=== PATIENT | female | born 1990 | race Hispanic/Latino ===

== ENCOUNTER 2020-03-26 15:00 | Emergency (ER) | payer OTHER ==
[2020-03-26] MEDS ORDERED: Sodium Chloride 0.9% 1,000 ML IV ONE ×2 (17:02→17:46)
[2020-03-26] MEDS ORDERED: Ondansetron 4 MG/2 ML SDV IVPUSH ONE (17:02)
[2020-03-26] MEDS ORDERED: Sodium Chloride 0.9% 10 ML Syringe FLUSH PRN (17:03)
[2020-03-26 17:25] LABS: CHLORIDE,CL 102 mmol/L (98-107); SODIUM,NA 139 mmol/L (136-145)
[2020-03-26 17:28] LABS: ANION GAP 10.8 mmol/L (10-20)
--- NOTE | 2020-03-26 17:33 | CR ---
[id number] RAD/RAD Chest PA or AP 1V EXAM: SINGLE VIEW CHEST. INDICATION: VIRAL INFECTION SHORTNESS OF BREATH COMPARISON: NO PREVIOUS SIMILAR EXAM IS AVAILABLE FINDINGS: Early bilateral perihilar infiltrates are seen The cardiac silhouette is normal IMPRESSION: EARLY BILATERAL PNEUMONIA. Alexei Lewis MD 03/26/20 0661 Thank you for allowing us to participate in the care of your patient.
[2020-03-26 17:45] LABS: PTT,PARTIAL THROMBOPLSTIN TIME 29.6 SEC (25.6-32.8)
[2020-03-26] MEDS ORDERED: Albuterol HFA 18 Gm Inhaler INH ONE (17:46)
--- NOTE | 2020-03-26 17:52 | EDM.PDOC ---
ED HPI GENERAL MEDICAL PROBLEM - General Stated Complaint: ER COVID + Time Seen by Provider: 03/26/20 15:15 Source of Information: Reports: Patient, Family - History of Present Illness INITIAL COMMENTS - FREE TEXT/NARRATIVE: Suki is a 29 y/o female who is brought to the ER by her mother via POV for headache, body aches, GI sx, and SOB with exertion. She had a +COVID test on 03/16/2020 and has just not felt well. Has not had much of an appetite and is very nauseated. Her and 2 school age children have also tested positive for COVID, but are not as sick as her. Generalized Pain Score (Numeric/FACES): 5 - Related Data Allergies Allergy/AdvReac Type Severity Reaction Status Date / Time latex Allergy Hives Verified 03/26/20 17:59 Home Meds: Home Meds Azithromycin 250 mg PO DAILY #6 tablet 03/26/20 [Rx] Ibuprofen 400 mg PO Q4H PRN 03/26/20 [History] Ondansetron [Ondansetron ODT] 4 mg PO Q6H PRN #15 tab.rapdis 03/26/20 [Rx] Past Medical History Other Hematologic History: Antiphospholipid Syndrome Review of Systems - Review of Systems Review Of Systems: See Below Constitutional: Reports: Fever, Weakness Eyes: Reports: No Symptoms Ears: Reports: No Symptoms Nose: Reports: Congestion Mouth/Throat: Reports: Painful Swallowing Respiratory: Reports: Shortness of Breath Cardiovascular: Reports: No Symptoms GI/Abdominal: Reports: Decreased Appetite, Nausea, Vomiting Genitourinary: Reports: No Symptoms Musculoskeletal: Reports: Other (Body Aches) Skin: Reports: No Symptoms Neurological: Reports: Headache Psychiatric: Reports: No Symptoms ED EXAM, GENERAL - Physical Exam Exam: See Below Exam Limited By: No Limitations General Appearance: Alert, WD/WN, No Apparent Distress (Adult female, looks ill.) Eye Exam: Bilateral Eye: PERRL Ears: Normal External Exam, Normal Canal, Hearing Grossly Normal, Normal TMs Nose: Normal Inspection, Normal Mucosa Throat/Mouth: Normal Lips, Normal Teeth, No Airway Compromise Head: Atraumatic, Normocephalic Neck: Supple Respiratory/Chest: No Respiratory Distress, Lungs Clear, Normal Breath Sounds, Chest Non-Tender Cardiovascular: Normal Peripheral Pulses, Regular Rate, Rhythm, No Rub GI/Abdominal: Normal Bowel Sounds, Soft, Non-Tender, No Organomegaly (Female) Exam: Deferred Rectal (Female) Exam: Deferred Back Exam: Other (Not examined) Extremities: Normal Inspection, Normal Range of Motion, Normal Capillary Refill Neurological: Alert, Oriented, CN II-XII Intact, Normal Cognition, Normal Gait Psychiatric: Normal Affect, Normal Mood Skin Exam: Dry, Intact, Normal Color, No Rash, Increased Warmth Lymphatic: No Adenopathy Course - Vital Signs Text/Narrative:: 1514 SHOW OPERATIONS SUPERVISOR reviewed patient's chart. 1714 Patient seen by SHOW OPERATIONS SUPERVISOR at this time alba to a higher acuity patient needing care first. Labs ordered. She was given a liter of NS and Zofran 4mg IVP. CXR ordered. 1754 A second liter of NS was ordered since she had not voided yet. Also given Albuterol MDI 4 puffs x 1 for the SOB with exertion. Also given Compazine 10mg IVP for continued nausea. 1819 CXR reviewed, note bilateral lower lobe infiltrates. Probable viral presentation with normal WBC and elevated lymphs and monos. Btjkqhok=765, D Dimer=0.49, AST=50, ALT=63. UA note +nitrates, large leuks, cx pending. Patient given Ceftriaxone 1mg IVP for the UTI since she is not taking po well. Will also place her on Azithromycin course. 1929 Feeling better. Reports breathing easier now and nausea pretty much gone. Discussed with patient taking an ASA 324mg daily due to her +COVID and hx of antiphospholipid syndrome. Her questions were answered. She was given discharge instructions. She left the ER in stable condition with her mother after written instructions given and IV fluids completed. Last Recorded V/S: Last Vital Signs Temp 37.0 C 03/26/20 15:10 Pulse 74 03/26/20 15:10 Resp 16 03/26/20 15:10 BP 117/70 03/26/20 15:10 Pulse Ox 97 03/26/20 15:10 - Orders/Labs/Meds Orders: Active Orders 24 hr Category Date Time Status CULTURE URINE [RM] Urgent Lab 03/26/20 18:25 Received UA RFX BON AND CULT IF INDIC [URIN] Stat Lab 03/26/20 17:03 Ordered UA W MICR POC [POC] Urgent Lab 03/26/20 18:25 Results Sodium Chloride 0.9% [Saline Flush] Med 03/26/20 17:03 Active 10 ml FLUSH ASDIRECTED PRN Saline Lock Insert [OM.PC] Stat Oth 03/26/20 17:02 Ordered Medication Orders Sodium Chloride (Saline Flush) 10 ml FLUSH ASDIRECTED PRN PRN Reason: Keep Vein Open Labs: Laboratory Tests 03/26/20 03/26/20 03/26/20 Range/Units 16:55 16:55 16:55 WBC 5.0 (4.0-10.0) x10^3/uL RBC 5.24 (4.00-5.50) x10^6/uL Hgb 13.8 (12.0-16.0) g/dL Hct 42.1 (33.0-47.0) % MCV 80.3 (78.0-93.0) fL MCH 26.3 (26.0-32.0) pg MCHC 32.8 (32.0-36.0) g/dL RDW Coeff of Jesus 12.3 (10.0-15.0) % Plt Count 224 (130-400) x10^3/uL Add Manual Diff Yes Neutrophils % (Manual) 39 L (50-80) % Band Neutrophils % 4 (0-6) % Lymphocytes % (Manual) 32 (25-50) % Reactive Lymphs % 10 H (0) % Monocytes % (Manual) 14 H (2-11) % Basophils % (Manual) 1 (0-1) % Platelet Estimate Adequate PT 10.0 (9.5-12.3) SEC INR 0.9 L (2.0-3.5) APTT 29.6 (25.6-32.8) SEC D-Dimer, Quantitative (<=0.58) mg/LFEU Sodium 139 (136-145) mmol/L Potassium 3.8 (3.5-5.1) mmol/L Chloride 102 (98-107) mmol/L Carbon Dioxide 30 (21-32) mmol/L Anion Gap 10.8 (10-20) mmol/L BUN 9 (7-18) mg/dL Creatinine 0.9 (0.55-1.02) mg/dL Est Cr Clr Drug Dosing TNP Estimated GFR (MDRD) > 60 Glucose 87 (74-106) mg/dL Calcium 8.8 (8.5-10.1) mg/dL Corrected Calcium 9.44 (8.5-10.1) mg/dL Magnesium 2.1 (1.8-2.4) mg/dL Ferritin (8-252) ng/mL Total Bilirubin 0.5 (0.2-1.0) mg/dL AST 50 H (15-37) U/L ALT 63 H (14-59) U/L Alkaline Phosphatase 106 (46-116) U/L Total Protein 8.5 H (6.4-8.2) g/dL Albumin 3.2 L (3.4-5.0) g/dL Globulin 5.3 Albumin/Globulin Ratio 0.60 Urine Color (YELLOW) POC Urine Appearance (CLEAR) POC Urine pH (5.0-8.0) Ur Specific [place] (1.005-1.030) POC Urine Protein (NEGATIVE) POC Ur Glucose (UA) (NEGATIVE) POC Urine Ketones (NEGATIVE) POC Ur Occult Blood (NEGATIVE) POC Urine Nitrite (NEGATIVE) POC Urine Bilirubin (NEGATIVE) POC Urine Urobilinogen (0.2) POC U Leukocyte Esteras (NEGATIVE) 03/26/20 03/26/20 03/26/20 Range/Units 16:55 16:55 18:25 WBC (4.0-10.0) x10^3/uL RBC (4.00-5.50) x10^6/uL Hgb (12.0-16.0) g/dL Hct (33.0-47.0) % MCV (78.0-93.0) fL MCH (26.0-32.0) pg MCHC (32.0-36.0) g/dL RDW Coeff of Jesus (10.0-15.0) % Plt Count (130-400) x10^3/uL Add Manual Diff Neutrophils % (Manual) (50-80) % Band Neutrophils % (0-6) % Lymphocytes % (Manual) (25-50) % Reactive Lymphs % (0) % Monocytes % (Manual) (2-11) % Basophils % (Manual) (0-1) % Platelet Estimate PT (9.5-12.3) SEC INR (2.0-3.5) APTT (25.6-32.8) SEC D-Dimer, Quantitative 0.49 (<=0.58) mg/LFEU Sodium (136-145) mmol/L Potassium (3.5-5.1) mmol/L Chloride (98-107) mmol/L Carbon Dioxide (21-32) mmol/L Anion Gap (10-20) mmol/L BUN (7-18) mg/dL Creatinine (0.55-1.02) mg/dL Est Cr Clr Drug Dosing Estimated GFR (MDRD) Glucose (74-106) mg/dL Calcium (8.5-10.1) mg/dL Corrected Calcium (8.5-10.1) mg/dL Magnesium (1.8-2.4) mg/dL Ferritin 493 H (8-252) ng/mL Total Bilirubin (0.2-1.0) mg/dL AST (15-37) U/L ALT (14-59) U/L Alkaline Phosphatase (46-116) U/L Total Protein (6.4-8.2) g/dL Albumin (3.4-5.0) g/dL Globulin Albumin/Globulin Ratio Urine Color Deann H (YELLOW) POC Urine Appearance Cloudy H (CLEAR) POC Urine pH 6.0 (5.0-8.0) Ur Specific [place] 1.005 (1.005-1.030) POC Urine Protein Negative (NEGATIVE) POC Ur Glucose (UA) Negative (NEGATIVE) POC Urine Ketones Negative (NEGATIVE) POC Ur Occult Blood Negative (NEGATIVE) POC Urine Nitrite Positive H (NEGATIVE) POC Urine Bilirubin Negative (NEGATIVE) POC Urine Urobilinogen 0.2 (0.2) POC U Leukocyte Esteras Large H (NEGATIVE) Meds: Medications Generic Name Dose Route Start Last Admin Trade Name Freq PRN Reason Stop Dose Admin Sodium Chloride 10 ml 03/26/20 17:03 Saline Flush FLUSH ASDIRECTED PRN Keep Vein Open Discontinued Medications Generic Name Dose Route Start Last Admin Trade Name Freq PRN Reason Stop Dose Admin Albuterol 4 gm 03/26/20 17:46 03/26/20 17:54 Ventolin Hfa INH 03/26/20 17:47 4 puff STAT ONE Administration Ceftriaxone Sodium 1 gm 03/26/20 18:33 03/26/20 18:47 Rocephin IVPUSH 03/26/20 18:34 1 gm STAT ONE Administration Sodium Chloride 1,000 mls @ 999 mls/hr 03/26/20 17:02 03/26/20 17:08 Normal Saline IV 03/26/20 18:02 999 mls/hr ONETIME ONE Administration Sodium Chloride 1,000 mls @ 999 mls/hr 03/26/20 17:46 03/26/20 17:55 Normal Saline IV 03/26/20 18:46 999 mls/hr ONETIME ONE Administration Ondansetron HCl 4 mg 03/26/20 17:02 03/26/20 17:08 Zofran IVPUSH 03/26/20 17:03 4 mg ONETIME ONE Administration Prochlorperazine Edisylate 10 mg 03/26/20 17:58 03/26/20 18:15 Compazine IV 03/26/20 17:59 10 mg ONETIME ONE Administration - Radiology Interpretation Free Text/Narrative:: XR Chest 1V=note early bilateral lower lobe infiltrates Departure - Departure Time of Disposition: 19:46 Disposition: Home, Self-Care 01 Condition: Good Clinical Impression: COVID-19, Elevated LFTs, Elevated ferritin level, Antiphospholipid syndrome UTI (urinary tract infection) Qualifiers: Urinary tract infection type: site unspecified Hematuria presence: without hematuria Qualified Code(s): N39.0 - Urinary tract infection, site not specified Pneumonia of both lower lobes Qualifiers: Pneumonia type: due to unspecified organism Qualified Code(s): J18.9 - Pneumonia, unspecified organism - Discharge Information Prescriptions: Azithromycin 250 mg PO DAILY #6 tablet Ondansetron [Ondansetron ODT] 4 mg PO Q6H PRN #15 tab.rapdis PRN Reason: Nausea Instructions: Prevent the Spread of COVID-19 if You Are Sick - CDC, Urinary Tract Infection, Adult, COVID-19: How to Protect Yourself and Others - CDC, COVID-19, Community-Acquired Pneumonia, Adult Referrals: Dasha Gu MD [Primary Care Provider] - Sepsis Event Note (ED) - Focused Exam Vital Signs: Vital Signs Temp Pulse Resp BP Pulse Ox 03/26/20 15:10 37.0 C 74 16 117/70 97 - My Orders Last 24 Hours: My Active Orders 03/26/20 17:02 Saline Lock Insert [OM.PC] Stat 03/26/20 17:03 UA RFX BON AND CULT IF INDIC [URIN] Stat Sodium Chloride 0.9% [Saline Flush] 10 ml FLUSH ASDIRECTED PRN 03/26/20 18:25 CULTURE URINE [RM] Urgent UA W MICR POC [POC] Urgent - Assessment/Plan Last 24 Hours: My Active Orders 03/26/20 17:02 Saline Lock Insert [OM.PC] Stat 03/26/20 17:03 UA RFX BON AND CULT IF INDIC [URIN] Stat Sodium Chloride 0.9% [Saline Flush] 10 ml FLUSH ASDIRECTED PRN 03/26/20 18:25 CULTURE URINE [RM] Urgent UA W MICR POC [POC] Urgent Assessment:: 1)COVID+ 2)Bilaterally Lower Lobe Pneumonia 3)Urinary Tract Infection 4)Elevated Liver Function 5)Hx Antiphospholipid Syndrome Plan: -Azithromycin pack as directed #6 (Rx), You may start this tomorrow if you can tolerate oral fluids/foods. -Albuterol inhaler 2 puffs every 4 hours as needed for cough/SOB (Sent home from ER) -Ondanestron ODT 4 mg oral every 4 hours as needed for nausea #4(ER) #15(Rx) -Take Aspirin 324mg oral daily since you are COVID+ and have a history of Antiphospholipid Syndrome. Do this for the next 3-4 weeks. -You may consider taking Vitamin D 2000 units daily, Vitamin C 1000mg daily, and Zinc 220mg oral daily as adjuncts to your COVID treatment. -Stay well hydrated. -If you are having any further problems urinating or breathing, you need to follow up with your primary provider -Return to the ER if you are unable to manage your symptoms at home or you have any other concerns -See COVID instruction sheets. You are on Day#8 of your quarantine and will need to complete 10 full days.
[2020-03-26] MEDS ORDERED: Prochlorperazine 10 MG/2 ML SDV IV ONE (17:58)
[2020-03-26] MEDS ORDERED: cefTRIAXone 1 GM Vial IVPUSH ONE (18:33)
[2020-03-26] MEDS ORDERED: Take Home: Ondansetron 4 MG Tab.DIS, 2 Tab Pack PO ONE (19:48)
== END 2020-03-26 20:13 | disposition home or self-care (01) ==
LOC: VM.ED 15:00
DX: U07.1 COVID-19 (principal); J12.89 Other viral pneumonia; N39.0 Urinary tract infection, site not specified; R79.89 Other specified abnormal findings of blood chemistry; D68.61 Antiphospholipid syndrome; Z91.040 Latex allergy status
CPT/HCPCS: 71045; 80053; 81000; 82728; 83735; 85025; 85379; 85610; 85730; 87086; 87088; 87186; 96374; 96375; 99284; 99285; A9270; J0696; J0780; J2405; J7030